=== PATIENT | male | born 1990 | race American Indian/Alaskan Native ===

== ENCOUNTER 2017-01-05 15:19 | Emergency (ER) | payer SELFPAY ==
[2017-01-05 16:48] LABS: Basophils % (Auto) 0.4 % (0.0-1.8); Eosinophils % (Auto) 0.4 % (0.0-4.3); Hematocrit 50.3 % (35.5-45.6); Hemoglobin 16.8 gm/dl (11.8-15.2); Mean Corpuscular HGB Conc 33 % (32-34); Mean Corpuscular Hemoglobin 31 pg (28-32); Mean Corpuscular Volume 93 fl (84-94); Platelet Count 278 K/mm3 (140-440); Red Blood Count 5.42 M/mm3 (3.65-5.03); Red Cell Distribution Width 13.7 % (13.2-15.2); White Blood Count 6.1 K/mm3 (4.5-11.0)
--- NOTE | 2017-01-05 16:52 | Cat Scan Report ---
CT HEAD WITHOUT CONTRAST INDICATION: Fell and hit head. Loss of consciousness x2. COMPARISON: None similar at this institution. FINDINGS: Noncontrast head CT demonstrates normal, symmetric ventricles and sulci without acute or recent infarct, hemorrhage, mass effect or midline shift. No abnormal extra-axial fluid collections. Posterior fossa structures and basilar cisterns appear within normal limits. Symmetric eye globes. Slight rightward nasal septal bowing. Mild bilateral sphenoid sinusitis. Clear remainder imaged paranasal sinuses and mastoid air cells. Intact calvarium. Normal overlying scalp soft tissues. Few radiopaque dental material incidentally noted. CONCLUSION: No acute intracranial CT abnormality with few other findings, as described. Thank you for the opportunity to participate in this patient's care.
[2017-01-05 16:54] LABS: Alanine Aminotransferase 11 units/L (7-56); Albumin 4.4 g/dL (3.9-5); Albumin/Globulin Ratio 1.3 %; Alkaline Phosphatase 63 units/L (35-129); BUN/Creatinine Ratio 9.09; Blood Urea Nitrogen 10 mg/dL (9-20); Calcium 9.6 mg/dL (8.4-10.2); Carbon Dioxide 27 mmol/L (22-30); Glucose 94 mg/dL (75-100); Lipase 53 units/L (13-60); Total Protein 7.9 g/dL (6.3-8.2)
[2017-01-05 16:55] LABS: Anion Gap 17 mmol/L; Chloride 100.8 mmol/L (98-107); Potassium 4.3 mmol/L (3.6-5.0); Sodium 140 mmol/L (137-145)
[2017-01-06 03:25] LABS: Urine Drugs of Abuse Note Disclamer
[2017-01-06 03:37] LABS: Bilirubin,Urine NEG (Negative); Blood,Urine NEG (Negative); Ketones,Urine TR mg/dL (Negative); Leukocyte Esterase,Urine SM (Negative); Mucus,Urine 3+ /HPF; Nitrite,Urine NEG (Negative); Urobilinogen,Urine < 2.0 mg/dL (<2.0)
[2017-01-06] MEDS ORDERED: ZOFRAN ODT PO ONE (06:46)
[2017-01-06] MEDS ORDERED: CATAPRES PO ONE (06:46)
[2017-01-06] MEDS ORDERED: BENTYL IM ONE (06:46)
--- NOTE | 2017-01-06 06:47 | Emergency Department Report ---
ED General Adult HPI - General Chief complaint: Abdominal Pain Stated complaint: FAINTING Time Seen by Provider: 01/06/17 06:37 Source: patient, RN notes reviewed Mode of arrival: Ambulatory Limitations: No Limitations - History of Present Illness Initial comments: This is a 26-year-old male. He is previously unknown to me. The patient has a history of narcotic dependence. The patient presents to the ER with dizziness, near-syncope, syncope, and complaint of narcotic withdrawal. He reports that on Monday he felt dizzy and lightheaded but did not lose consciousness. He reports that yesterday, morning, he felt somewhat dizzy and lost consciousness for a few seconds. The patient currently has no headache, neck pain, chest pain, abdominal pain or shortness of breath. There is no leg pain. There is no leg swelling. No recent trips greater than 4 hours. No recent hospital admissions. He is not homicidal. He is not suicidal. He requests narcotic detox. The patient does not have access to guns or firearms. The patient denies toxic ingestions. The patient reports that he had some mild abdominal cramping prior to arrival/my evaluation, but this has since resolved. He has no testicular pain. He has no irritative or obstructive urinary symptoms. -: Gradual Location: abdomen (now resolved) Consistency: now resolved Improves with: medication, rest Worsens with: medication Associated Symptoms: malaise, nausea/vomiting, syncope. denies: chest pain, cough - Related Data Previous Rx's Medication Instructions Recorded Last Taken Type Dicyclomine [Bentyl] 10 mg PO QID PRN #20 capsule 01/06/17 Unknown Rx Ondansetron [Zofran Odt] 4 mg PO QID PRN #20 tab.rapdis 01/06/17 Unknown Rx cloNIDine [Catapres] 0.1 mg PO BID PRN #15 tablet 01/06/17 Unknown Rx Allergies Allergy/AdvReac Type Severity Reaction Status Date / Time No Known Allergies Allergy Verified 01/05/17 16:00 ED Review of Systems ROS: Stated complaint: FAINTING Other details as noted in HPI Constitutional: malaise. denies: fever Eyes: denies: vision change ENT: denies: epistaxis Respiratory: denies: cough Cardiovascular: denies: chest pain Gastrointestinal: nausea, vomiting Genitourinary: denies: testicular pain Skin: denies: lesions Neurological: denies: weakness, confusion Psychiatric: denies: depression, homicidal thoughts, suicidal thoughts ED Past Medical Hx - Past Medical History Previous Medical History?: No - Surgical History Past Surgical History?: No - Social History Smoking Status: Current Every Day Smoker Substance Use Type: Alcohol - Medications Home Medications: Home Medications Medication Instructions Recorded Confirmed Last Taken Type Dicyclomine [Bentyl] 10 mg PO QID PRN #20 capsule 01/06/17 Unknown Rx Ondansetron [Zofran Odt] 4 mg PO QID PRN #20 tab.rapdis 01/06/17 Unknown Rx cloNIDine [Catapres] 0.1 mg PO BID PRN #15 tablet 01/06/17 Unknown Rx ED Physical Exam - General Limitations: No Limitations General appearance: alert, in no apparent distress - Head Head exam: Present: atraumatic, normocephalic - Eye Eye exam: Present: normal appearance, PERRL, EOMI, other (visual acuity intact to finger counting, color perception, reading at a close distance). Absent: nystagmus - ENT ENT exam: Present: normal exam, normal orophraynx, mucous membranes moist, normal external ear exam - Neck Neck exam: Present: normal inspection, full ROM. Absent: tenderness, meningismus - Respiratory Respiratory exam: Present: normal lung sounds bilaterally. Absent: respiratory distress, wheezes, rales, rhonchi, stridor, chest wall tenderness, accessory muscle use, decreased breath sounds, prolonged expiratory - Cardiovascular Cardiovascular Exam: Present: regular rate, normal rhythm, normal heart sounds. Absent: bradycardia, tachycardia, irregular rhythm, systolic murmur, diastolic murmur, rubs, gallop - GI/Abdominal GI/Abdominal exam: Present: soft, normal bowel sounds. Absent: distended, tenderness, guarding, rebound, rigid, pulsatile mass - Rectal Rectal exam: Present: deferred - Extremities Exam Extremities exam: Present: normal inspection, full ROM, normal capillary refill. Absent: tenderness, pedal edema, joint swelling, calf tenderness - Back Exam Back exam: Present: normal inspection, full ROM. Absent: tenderness, CVA tenderness (R), CVA tenderness (L), muscle spasm, paraspinal tenderness, vertebral tenderness - Neurological Exam Neurological exam: Present: alert, oriented X3, normal gait (normal gait. Normal tandem gait. Negative pronator drift. Negative Romberg examination.), other (Extraocular movements intact. Tongue midline. No facial droop. Facial sensation intact to light touch in the V1, V2, V3 distribution bilaterally. 5 and 5 strength in 4 extremities.. Sensation is intact to light touch in 4 extremities.). Absent: motor sensory deficit - Psychiatric Psychiatric exam: Present: normal affect, normal mood. Absent: homicidal ideation, suicidal ideation - Skin Skin exam: Present: warm, dry, intact, normal color. Absent: rash ED Course Vital Signs 01/05/17 01/06/17 01/06/17 16:00 02:38 02:45 Temperature 99.2 F Pulse Rate 99 H 52 L 63 Respiratory 20 17 27 H Rate Blood Pressure 129/76 117/71 Blood Pressure [Right] O2 Sat by Pulse 100 100 97 Oximetry 01/06/17 01/06/17 01/06/17 02:53 02:55 02:57 Temperature Pulse Rate 63 72 73 Respiratory 23 19 14 Rate Blood Pressure 117/71 117/71 117/71 Blood Pressure [Right] O2 Sat by Pulse 97 97 96 Oximetry 01/06/17 01/06/17 01/06/17 02:59 03:00 03:01 Temperature Pulse Rate 70 69 67 Respiratory 19 15 16 Rate Blood Pressure 117/71 112/61 112/61 Blood Pressure [Right] O2 Sat by Pulse 99 97 97 Oximetry 01/06/17 01/06/17 01/06/17 03:03 03:05 03:07 Temperature Pulse Rate 72 73 68 Respiratory 16 16 13 Rate Blood Pressure 112/61 112/61 112/61 Blood Pressure [Right] O2 Sat by Pulse 97 95 97 Oximetry 01/06/17 01/06/17 01/06/17 03:09 03:11 03:13 Temperature Pulse Rate 67 65 75 Respiratory 22 19 20 Rate Blood Pressure 112/61 112/61 112/61 Blood Pressure [Right] O2 Sat by Pulse 97 98 96 Oximetry 01/06/17 01/06/17 01/06/17 03:15 03:17 03:19 Temperature Pulse Rate 61 65 62 Respiratory 13 14 22 Rate Blood Pressure 110/70 110/70 110/70 Blood Pressure [Right] O2 Sat by Pulse 96 98 95 Oximetry 01/06/17 01/06/17 01/06/17 03:21 03:23 03:25 Temperature Pulse Rate 67 65 63 Respiratory 22 21 14 Rate Blood Pressure 110/70 110/70 110/70 Blood Pressure [Right] O2 Sat by Pulse 97 93 98 Oximetry 01/06/17 01/06/17 01/06/17 03:27 03:29 03:30 Temperature Pulse Rate 65 63 65 Respiratory 23 22 17 Rate Blood Pressure 110/70 110/70 102/67 Blood Pressure [Right] O2 Sat by Pulse 95 95 97 Oximetry 01/06/17 01/06/17 01/06/17 03:31 03:33 03:35 Temperature Pulse Rate 69 63 58 L Respiratory 21 21 18 Rate Blood Pressure 102/67 102/67 102/67 Blood Pressure [Right] O2 Sat by Pulse 95 96 92 Oximetry 01/06/17 01/06/17 01/06/17 03:37 03:39 03:41 Temperature Pulse Rate 67 64 64 Respiratory 22 21 18 Rate Blood Pressure 102/67 102/67 102/67 Blood Pressure [Right] O2 Sat by Pulse 97 94 94 Oximetry 01/06/17 01/06/17 01/06/17 03:43 03:45 03:47 Temperature Pulse Rate 64 65 68 Respiratory 22 19 21 Rate Blood Pressure 102/67 110/66 110/66 Blood Pressure [Right] O2 Sat by Pulse 96 95 95 Oximetry 01/06/17 01/06/17 01/06/17 03:49 03:51 03:53 Temperature Pulse Rate 64 67 63 Respiratory 20 21 22 Rate Blood Pressure 110/66 110/66 110/66 Blood Pressure [Right] O2 Sat by Pulse 95 97 93 Oximetry 01/06/17 01/06/17 01/06/17 03:55 03:57 03:59 Temperature Pulse Rate 72 70 73 Respiratory 23 21 21 Rate Blood Pressure 110/66 110/66 110/66 Blood Pressure [Right] O2 Sat by Pulse 95 96 95 Oximetry 01/06/17 01/06/17 01/06/17 04:00 04:01 04:03 Temperature Pulse Rate 67 79 82 Respiratory 20 21 13 Rate Blood Pressure 112/65 112/65 112/65 Blood Pressure [Right] O2 Sat by Pulse 96 96 94 Oximetry 01/06/17 01/06/17 01/06/17 04:05 04:07 04:09 Temperature Pulse Rate 82 67 68 Respiratory 18 19 21 Rate Blood Pressure 112/65 112/65 102/67 Blood Pressure [Right] O2 Sat by Pulse 98 96 95 Oximetry 01/06/17 01/06/17 01/06/17 04:11 04:31 04:36 Temperature Pulse Rate 66 67 Respiratory 20 22 18 Rate Blood Pressure 102/67 102/67 Blood Pressure [Right] O2 Sat by Pulse 95 98 97 Oximetry 01/06/17 01/06/17 01/06/17 05:00 05:30 06:00 Temperature Pulse Rate 70 63 62 Respiratory 20 21 14 Rate Blood Pressure 108/66 112/64 115/71 Blood Pressure [Right] O2 Sat by Pulse 96 96 97 Oximetry 01/06/17 01/06/17 07:30 10:00 Temperature Pulse Rate 68 58 L Respiratory 16 16 Rate Blood Pressure Blood Pressure 113/76 112/69 [Right] O2 Sat by Pulse 100 100 Oximetry - Reevaluation(s) Reevaluation #1: 01/06/17 09:42 patient is seen in conjunction with Haroon Burnham of the crisis /mental health team. The patient is given outpatient resources for detox. He will be discharged at this time. Return precautions are reviewed. ED Medical Decision Making - Lab Data Result diagrams: 01/05/17 16:17 01/05/17 16:17 Vital Signs 01/05/17 01/06/17 01/06/17 16:00 02:38 02:45 Temperature 99.2 F Pulse Rate 99 H 52 L 63 Respiratory 20 17 27 H Rate Blood Pressure 129/76 117/71 Blood Pressure [Right] O2 Sat by Pulse 100 100 97 Oximetry 01/06/17 01/06/17 01/06/17 02:53 02:55 02:57 Temperature Pulse Rate 63 72 73 Respiratory 23 19 14 Rate Blood Pressure 117/71 117/71 117/71 Blood Pressure [Right] O2 Sat by Pulse 97 97 96 Oximetry 01/06/17 01/06/17 01/06/17 02:59 03:00 03:01 Temperature Pulse Rate 70 69 67 Respiratory 19 15 16 Rate Blood Pressure 117/71 112/61 112/61 Blood Pressure [Right] O2 Sat by Pulse 99 97 97 Oximetry 01/06/17 01/06/17 01/06/17 03:03 03:05 03:07 Temperature Pulse Rate 72 73 68 Respiratory 16 16 13 Rate Blood Pressure 112/61 112/61 112/61 Blood Pressure [Right] O2 Sat by Pulse 97 95 97 Oximetry 01/06/17 01/06/17 01/06/17 03:09 03:11 03:13 Temperature Pulse Rate 67 65 75 Respiratory 22 19 20 Rate Blood Pressure 112/61 112/61 112/61 Blood Pressure [Right] O2 Sat by Pulse 97 98 96 Oximetry 01/06/17 01/06/17 01/06/17 03:15 03:17 03:19 Temperature Pulse Rate 61 65 62 Respiratory 13 14 22 Rate Blood Pressure 110/70 110/70 110/70 Blood Pressure [Right] O2 Sat by Pulse 96 98 95 Oximetry 01/06/17 01/06/17 01/06/17 03:21 03:23 03:25 Temperature Pulse Rate 67 65 63 Respiratory 22 21 14 Rate Blood Pressure 110/70 110/70 110/70 Blood Pressure [Right] O2 Sat by Pulse 97 93 98 Oximetry 01/06/17 01/06/17 01/06/17 03:27 03:29 03:30 Temperature Pulse Rate 65 63 65 Respiratory 23 22 17 Rate Blood Pressure 110/70 110/70 102/67 Blood Pressure [Right] O2 Sat by Pulse 95 95 97 Oximetry 01/06/17 01/06/17 01/06/17 03:31 03:33 03:35 Temperature Pulse Rate 69 63 58 L Respiratory 21 21 18 Rate Blood Pressure 102/67 102/67 102/67 Blood Pressure [Right] O2 Sat by Pulse 95 96 92 Oximetry 01/06/17 01/06/17 01/06/17 03:37 03:39 03:41 Temperature Pulse Rate 67 64 64 Respiratory 22 21 18 Rate Blood Pressure 102/67 102/67 102/67 Blood Pressure [Right] O2 Sat by Pulse 97 94 94 Oximetry 01/06/17 01/06/17 01/06/17 03:43 03:45 03:47 Temperature Pulse Rate 64 65 68 Respiratory 22 19 21 Rate Blood Pressure 102/67 110/66 110/66 Blood Pressure [Right] O2 Sat by Pulse 96 95 95 Oximetry 01/06/17 01/06/17 01/06/17 03:49 03:51 03:53 Temperature Pulse Rate 64 67 63 Respiratory 20 21 22 Rate Blood Pressure 110/66 110/66 110/66 Blood Pressure [Right] O2 Sat by Pulse 95 97 93 Oximetry 01/06/17 01/06/17 01/06/17 03:55 03:57 03:59 Temperature Pulse Rate 72 70 73 Respiratory 23 21 21 Rate Blood Pressure 110/66 110/66 110/66 Blood Pressure [Right] O2 Sat by Pulse 95 96 95 Oximetry 01/06/17 01/06/17 01/06/17 04:00 04:01 04:03 Temperature Pulse Rate 67 79 82 Respiratory 20 21 13 Rate Blood Pressure 112/65 112/65 112/65 Blood Pressure [Right] O2 Sat by Pulse 96 96 94 Oximetry 01/06/17 01/06/17 01/06/17 04:05 04:07 04:09 Temperature Pulse Rate 82 67 68 Respiratory 18 19 21 Rate Blood Pressure 112/65 112/65 102/67 Blood Pressure [Right] O2 Sat by Pulse 98 96 95 Oximetry 01/06/17 01/06/17 01/06/17 04:11 04:31 04:36 Temperature Pulse Rate 66 67 Respiratory 20 22 18 Rate Blood Pressure 102/67 102/67 Blood Pressure [Right] O2 Sat by Pulse 95 98 97 Oximetry 01/06/17 01/06/17 01/06/17 05:00 05:30 06:00 Temperature Pulse Rate 70 63 62 Respiratory 20 21 14 Rate Blood Pressure 108/66 112/64 115/71 Blood Pressure [Right] O2 Sat by Pulse 96 96 97 Oximetry 01/06/17 07:30 Temperature Pulse Rate 68 Respiratory 16 Rate Blood Pressure Blood Pressure 113/76 [Right] O2 Sat by Pulse 100 Oximetry Lab Results 01/05/17 01/05/17 01/05/17 Range/Units 16:17 16:17 16:17 WBC 6.1 (4.5-11.0) K/mm3 RBC 5.42 H (3.65-5.03) M/mm3 Hgb 16.8 H (11.8-15.2) gm/dl Hct 50.3 H (35.5-45.6) % MCV 93 (84-94) fl MCH 31 (28-32) pg MCHC 33 (32-34) % RDW 13.7 (13.2-15.2) % Plt Count 278 (140-440) K/mm3 Lymph % (Auto) 31.5 (13.4-35.0) % [place] % (Auto) 9.3 H (0.0-7.3) % Eos % (Auto) 0.4 (0.0-4.3) % Baso % (Auto) 0.4 (0.0-1.8) % Lymph # 1.9 (1.2-5.4) K/mm3 [place] # 0.6 (0.0-0.8) K/mm3 Eos # 0.0 (0.0-0.4) K/mm3 Baso # 0.0 (0.0-0.1) K/mm3 Seg Neutrophils % 58.4 (40.0-70.0) % Seg Neutrophils # 3.5 (1.8-7.7) K/mm3 Sodium 140 (137-145) mmol/L Potassium 4.3 (3.6-5.0) mmol/L Chloride 100.8 (98-107) mmol/L Carbon Dioxide 27 (22-30) mmol/L Anion Gap 17 mmol/L BUN 10 (9-20) mg/dL Creatinine 1.1 (0.8-1.5) mg/dL Estimated GFR > 60 ml/min BUN/Creatinine Ratio 9.09 % Glucose 94 (75-100) mg/dL Calcium 9.6 (8.4-10.2) mg/dL Total Bilirubin 0.40 (0.1-1.2) mg/dL AST 10 (5-40) units/L ALT 11 (7-56) units/L Alkaline Phosphatase 63 (35-129) units/L Total Protein 7.9 (6.3-8.2) g/dL Albumin 4.4 (3.9-5) g/dL Albumin/Globulin Ratio 1.3 % Lipase 53 (13-60) units/L Urine Color (Yellow) Urine Turbidity (Clear) Urine pH (5.0-7.0) Ur Specific [place] (1.003-1.030) Urine Protein (Negative) mg/dL Urine Glucose (UA) (Negative) mg/dL Urine Ketones (Negative) mg/dL Urine Blood (Negative) Urine Nitrite (Negative) Urine Bilirubin (Negative) Urine Urobilinogen (<2.0) mg/dL Ur Leukocyte Esterase (Negative) Urine WBC (Auto) (0.0-6.0) /HPF Urine RBC (Auto) (0.0-6.0) /HPF U Epithel Cells (Auto) (0-13.0) /HPF Hyaline Casts /LPF Urine Mucus /HPF Urine Opiates Screen Urine Methadone Screen Ur Barbiturates Screen Ur Phencyclidine Scrn Ur Amphetamines Screen U Benzodiazepines Scrn Urine Cocaine Screen U Marijuana (THC) Screen Drugs of Abuse Note Plasma/Serum Alcohol < 0.01 (0-0.07) gm% 01/05/17 01/06/17 Range/Units Unknown Unknown WBC (4.5-11.0) K/mm3 RBC (3.65-5.03) M/mm3 Hgb (11.8-15.2) gm/dl Hct (35.5-45.6) % MCV (84-94) fl MCH (28-32) pg MCHC (32-34) % RDW (13.2-15.2) % Plt Count (140-440) K/mm3 Lymph % (Auto) (13.4-35.0) % [place] % (Auto) (0.0-7.3) % Eos % (Auto) (0.0-4.3) % Baso % (Auto) (0.0-1.8) % Lymph # (1.2-5.4) K/mm3 [place] # (0.0-0.8) K/mm3 Eos # (0.0-0.4) K/mm3 Baso # (0.0-0.1) K/mm3 Seg Neutrophils % (40.0-70.0) % Seg Neutrophils # (1.8-7.7) K/mm3 Sodium (137-145) mmol/L Potassium (3.6-5.0) mmol/L Chloride (98-107) mmol/L Carbon Dioxide (22-30) mmol/L Anion Gap mmol/L BUN (9-20) mg/dL Creatinine (0.8-1.5) mg/dL Estimated GFR ml/min BUN/Creatinine Ratio % Glucose (75-100) mg/dL Calcium (8.4-10.2) mg/dL Total Bilirubin (0.1-1.2) mg/dL AST (5-40) units/L ALT (7-56) units/L Alkaline Phosphatase (35-129) units/L Total Protein (6.3-8.2) g/dL Albumin (3.9-5) g/dL Albumin/Globulin Ratio % Lipase (13-60) units/L Urine Color Yellow (Yellow) Urine Turbidity Clear (Clear) Urine pH 5.0 (5.0-7.0) Ur Specific [place] 1.028 (1.003-1.030) Urine Protein 30 mg/dl (Negative) mg/dL Urine Glucose (UA) Neg (Negative) mg/dL Urine Ketones Tr (Negative) mg/dL Urine Blood Neg (Negative) Urine Nitrite Neg (Negative) Urine Bilirubin Neg (Negative) Urine Urobilinogen < 2.0 (<2.0) mg/dL Ur Leukocyte Esterase Sm (Negative) Urine WBC (Auto) 6.0 (0.0-6.0) /HPF Urine RBC (Auto) 3.0 (0.0-6.0) /HPF U Epithel Cells (Auto) 1.0 (0-13.0) /HPF Hyaline Casts 2 /LPF Urine Mucus 3+ /HPF Urine Opiates Screen Presumptive positive Urine Methadone Screen Presumptive negative Ur Barbiturates Screen Presumptive positive Ur Phencyclidine Scrn Presumptive negative Ur Amphetamines Screen Presumptive negative U Benzodiazepines Scrn Presumptive positive Urine Cocaine Screen Presumptive negative U Marijuana (THC) Screen Presumptive positive Drugs of Abuse Note Disclamer Plasma/Serum Alcohol (0-0.07) gm% - EKG Data -: EKG Interpreted by Nd EKG shows normal: sinus rhythm, axis, intervals, QRS complexes, ST-T waves - EKG Data When compared to previous EKG there are: previous EKG unavailable - Radiology Data Radiology results: report reviewed, image reviewed Noncontrast CT scan of the brain is negative for acute disease - Medical Decision Making Differential diagnosis: Vasovagal event, orthostasis, narcotic dependence, narcotic withdrawal Assessment and plan: 26-year-old male with reported dizziness, lightheadedness, one episode of brief loss of consciousness. There is no severe headache, neck pain, chest pain prior to these events. He has no abdominal tenderness, the patient was observed overnight in the emergency room for over 12 hours without any vital sign abnormality, and without any neurologic compromise. He has a GCS of 15, with an NIH score of 0, he is clinically sober, there are no pulmonary embolus or DVT risk factors, he is low risk by well's criteria, and he is perc negative. The patient further reports she's had similar symptoms in the past when experiencing narcotic withdrawal. He will be treated for his symptoms. At this point in time, there is no immediate medical contraindication to detox therapy. The crisis team is informed. Critical care attestation.: If time is entered above; I have spent that time in minutes in the direct care of this critically ill patient, excluding procedure time. ED Disposition Clinical Impression: Narcotic dependence Disposition: DC-01 TO HOME OR SELFCARE Is pt being admited?: No Does the pt Need Aspirin: No Condition: Stable Instructions: Narcotic Abuse (ED), Opioid Withdrawal (ED) Additional Instructions: Take the medications as directed. If taking the clonidine, do not drive, consume alcohol, or make important decisions. Return to the ER right away with fevers or chills, chest pain or shortness of breath, intractable nausea or vomiting, inability to tolerate liquids feeds and confusion. Follow-up with the outpatient detox specialist as listed. At this point in time , there is no immediate medical contraindication to detox therapy. Prescriptions: cloNIDine [Catapres] 0.1 mg PO BID PRN #15 tablet PRN Reason: Nausea Dicyclomine [Bentyl] 10 mg PO QID PRN #20 capsule PRN Reason: Pain Ondansetron [Zofran Odt] 4 mg PO QID PRN #20 tab.rapdis PRN Reason: Nausea Referrals: PRIMARY CARE, [Primary Care Provider] - 3-5 Days [facility]ES[facility] BLANKENSH[facility] MD [Staff Physician] - 3-5 Days [facility] [Outside] - 3-5 Days
[2017-01-06 11:03] VITALS: BP 112/69
== END 2017-01-06 10:06 | disposition home or self-care (01) ==
LOC: ED 15:19
DX: F11.23 Opioid dependence with withdrawal (principal); T40.2X5A Adverse effect of other opioids, initial encounter; F13.10 Sedative, hypnotic or anxiolytic abuse, uncomplicated; F17.200 Nicotine dependence, unspecified, uncomplicated; F12.10 Cannabis abuse, uncomplicated; Y93.89 Activity, other specified; Y99.8 Other external cause status; Y92.89 Other specified places as the place of occurrence of the external cause; Z79.899 Other long term (current) drug therapy
CPT/HCPCS: 36415; 70450; 80053; 80307; 81001; 83690; 85025; 93005; 93010; 96372; 99284; G0480; J0500; 80320; Q0162